=== PATIENT | male | born 1980 | race Caucasian/White ===

== ENCOUNTER 2018-04-15 23:27 | Emergency (ER) | payer OTHER ==
[2018-04-15 23:28] VITALS: BMI 93.2
[2018-04-15 23:39] VITALS: BP 146/96; PULSE 102; TEMP 98.8; O2SAT 98
--- NOTE | 2018-04-15 23:58 | C.PDOC ---
History Of Present Illness 37 year old male presents to the ED c/o dental pain and minimal facial swelling for the past 2 days. Patient reports he has not gone to see his dentist. Patient denies injury, fall, trauma, fever, chills, nausea, vomit. Time Seen by Provider: 04/15/18 23:42 Chief Complaint (Nursing): Dental Pain History Per: Patient History/Exam Limitations: no limitations Onset/Duration Of Symptoms: Days (2) Current Symptoms Are (Timing): Still Present Quality: Positive for: "Pain" Recent travel outside of the [place]: No Additional History Per: Patient Past Medical History Reviewed: Historical Data, Nursing Documentation, Vital Signs Vital Signs: Last Vital Signs Temp 98.8 F 04/15/18 23:34 Pulse 102 H 04/15/18 23:34 Resp 20 04/16/18 00:03 BP 146/96 H 04/15/18 23:34 Pulse Ox 98 04/15/18 23:58 - Medical History PMH: Diabetes, HTN Denies: Hyperthyroidism, Hypothyroidism, Chronic Kidney Disease Surgical History: No Surg Hx Family History: States: Diabetes Denies: CAD - Social History Hx Tobacco Use: No Hx Alcohol Use: No Hx Substance Use: No - Immunization History Hx Tetanus Toxoid Vaccination: Yes Hx Influenza Vaccination: No Hx Pneumococcal Vaccination: No Review Of Systems Constitutional: Negative for: Fever, Chills ENT: Positive for: Mouth Pain, Mouth Swelling. Negative for: Nose Discharge, Nose Congestion Cardiovascular: Negative for: Chest Pain Respiratory: Negative for: Cough, Shortness of Breath Gastrointestinal: Negative for: Nausea, Vomiting Skin: Negative for: Rash Neurological: Negative for: Headache Physical Exam - Physical Exam Appears: Non-toxic, No Acute Distress Skin: Normal Color, Warm, Dry Head: Atraumatic, Normacephalic Eye(s): bilateral: Normal Inspection Ear(s): Bilateral: Normal Nose: No Discharge Oral Mucosa: Moist Gingiva: Erythema (left upper gum), Swelling (left upper gum), No Bleeding, No Abscess Throat: Normal, No Erythema, No Exudate Neck: Normal ROM, Supple Extremity: Normal ROM, No Tenderness, No Swelling Neurological/Psych: Oriented x3, Normal Speech Gait: Steady ED Course And Treatment O2 Sat by Pulse Oximetry: 98 (ON RA) Pulse Ox Interpretation: Normal Progress Note: Plan: - Penicillin 1,000 mg PO. On reassessment, patient is resting comfortably, and is in no acute distress. Patient was instructed to follow up with physician/clinic in 1-2 days for further evaluation. Disposition Counseled Patient/Family Regarding: Diagnosis, Need For Followup, Rx Given - Disposition Disposition: HOME/ ROUTINE Disposition Time: 23:54 Condition: STABLE Additional Instructions: Please follow up with Dentist on tuesday Take medications as prescribed Return to ER if worse Prescriptions: Penicillin VK [Penicillin VK Tab] 500 mg PO Q6H #20 tab Instructions: Tooth Abscess (DC) Forms: [facility] (Indonesian) - Clinical Impression Clinical Impression: Dental abscess - PA / [employer] / Resident Statement MD/DO has reviewed & agrees with the documentation as recorded. - Scribe Statement The provider has reviewed the documentation as recorded by the Scribe Anand Gloria All medical record entries made by the Maileibalaina were at my direction and personally dictated by me. I have reviewed the chart and agree that the record accurately reflects my personal performance of the history, physical exam, medical decision making, and the department course for this patient. I have also personally directed, reviewed, and agree with the discharge instructions and disposition.
[2018-04-16 00:04] VITALS: RESP 20
== END 2018-04-16 00:03 | disposition home or self-care (01) ==
LOC: C.ER 23:27
DX: K04.7 Periapical abscess without sinus (principal)